=== PATIENT | male | born 1980 | race Asian ===

== ENCOUNTER 2016-12-22 22:37 | Emergency (ER) | payer OTHER ==
[~2016-12-22] VITALS: Ht 170.2 cm; Wt 83.9 kg
[~2016-12-22 22:37] MED LIST: OXYC10TE14 PO; VENL150C1 PO
[2016-12-22 22:45] VITALS: BP 125/74
--- NOTE | 2016-12-22 23:58 | NUR ---
TO ER BED 8
--- NOTE | 2016-12-23 | NUR ---
Patient being evaluated by DR. ANDRES at bedside.
[2016-12-23] MEDS ORDERED: BACITRACIN OINT 500 UNITS/GM PKT TP ONE (00:09)
[2016-12-23] MEDS ORDERED: LIDOCAINE/EPI 1% 1:100000 20 ML VIAL INJ ONE (00:09)
--- NOTE | 2016-12-23 00:17 | NUR ---
36Y/M PATIENT PRESENTS TO ED WITH C/O ABSCEES TO SACRUM X 1 WK . PT STATES ABSCESS 1 WK, REDNESS AND SWALLEN, PAIN , NO FEVER, NO MEDICAL HX; SKIN IS PINK/WARM/DRY, NOTED SACRUM ABSCESS; AAOX4 WITH EVEN AND STEADY GAIT; LUNGS CLEAR BL; HR EVEN AND REGULAR; PT DENIES ANY FEVER, CP, SOB, OR COUGH AT THIS TIME; PATIENT STATES PAIN OF 5/10 AT THIS TIME; VSS; PATIENT POSITIONED FOR COMFORT; HOB ELEVATED; BEDRAILS UP X2; BED DOWN. ER MD MADE AWARE OF PT STATUS.
--- NOTE | 2016-12-23 00:28 | NUR ---
DR. ANDRES PERFORMS I AND D AT BEDSIDE.
--- NOTE | 2016-12-23 00:52 | NUR ---
Patient discharged with v/s stable. Written and verbal after care instructions given and explained. Patient alert, oriented and verbalized understanding of instructions. Ambulatory with steady gait. All questions addressed prior to discharge. ID band removed. Patient advised to follow up with PMD. Rx of KEFLEX 500 MG, TRAMADOL 50 MG given. Patient educated on indication of medication including possible reaction and side effects. Opportunity to ask questions provided and answered.
[2016-12-23 01:03] VITALS: BP 130/75
== END 2016-12-23 00:52 | disposition home or self-care (01) ==
LOC: MED 22:37
DX: L05.01 Pilonidal cyst with abscess (principal)
CPT/HCPCS: 10080; 99283; J2001

== ENCOUNTER 2016-12-23 21:38 | Emergency (ER) | payer OTHER ==
[~2016-12-23] VITALS: Ht 170.2 cm; Wt 83.0 kg
[~2016-12-23 21:38] MED LIST changes: +AMBIEN10 MG PO; +EFFEXOR-XR150 MG PO; +LEXAPRO20 MG PO; -OXYC10TE14 PO; +OXYCONTIN10 MG PO; -VENL150C1 PO
[2016-12-23 21:44] VITALS: BP 131/100
--- NOTE | 2016-12-24 00:54 | NUR ---
PT. AMBULATED TO ER BED 7
--- NOTE | 2016-12-24 00:55 | NUR ---
PT IS 36/M BIB FAMILY TO ED WITH C/O WOUND CHECK, I AND D WAS DONE YESTERDAY IN ED. PT STATES NO MED HX. DENIES N/V/D; SKIN IS PINK/WARM/DRY; AAOX4 WITH EVEN AND STEADY GAIT; LUNGS CLEAR BL; HR EVEN AND REGULAR; PT DENIES ANY FEVER, CP, SOB, OR COUGH AT THIS TIME; PATIENT STATES PAIN OF 8/10 AT THIS TIME; VSS; PATIENT POSITIONED FOR COMFORT; HOB ELEVATED; BEDRAILS UP X2; BED DOWN. ER MD MADE AWARE OF PT STATUS.
--- NOTE | 2016-12-24 00:56 | NUR ---
Oswaldo souza in [facility] - 12/24/16 at 0056 by [facility] TO ER BED 7
--- NOTE | 2016-12-24 01:30 | NUR ---
Patient being evaluated by physician at bedside.
[2016-12-24] MEDS ORDERED: oxyCODONE/APAP 5/325 MG 1 TAB TAB PO ONE (01:35)
--- NOTE | 2016-12-24 02:26 | NUR ---
DR KEARNEY AT PT BEDSIDE.
[2016-12-24 02:41] VITALS: BP 118/86
--- NOTE | 2016-12-24 02:42 | NUR ---
Patient discharged with v/s stable. Written and verbal after care instructions given and explained. Patient alert, oriented and verbalized understanding of instructions. Ambulatory with steady gait. All questions addressed prior to discharge. ID band removed. Patient advised to follow up with PMD. Rx of DOXYCYCLINE HYCLATE AND PERCOCET given. Patient educated on indication of medication including possible reaction and side effects. Opportunity to ask questions provided and answered.
== END 2016-12-24 02:41 | disposition home or self-care (01) ==
LOC: MED 21:38
DX: L05.01 Pilonidal cyst with abscess (principal)